=== PATIENT | male | born 1945 | race Caucasian/White ===

== ENCOUNTER 2017-01-26 21:52 | Inpatient (IN) | payer OTHER ==
[~2017-01-26] VITALS: Ht 182.9 cm; Wt 94.5 kg
[2017-01-26 22:26] LABS: HEMATOCRIT 39.5 % (38.0-50.0); MCH 31.2 PG (29.0-34.0); MCHC 33.2 G/DL (30.0-36.0); MEAN PLAT.VOLUME 9.6 uM^3 (9.0-12.4); PLATELET COUNT 370 K/uL (156-360); RBC DIS.WIDTH-CV 13.7 % (11.8-14.6); RBC DIS.WIDTH-SD 46.5 % (39-53); WHITE BLOOD COUNT 9.1 K/uL (4.1-10.2)
[2017-01-26 22:33] LABS: POINT-OF-CARE METER ID UU14100415
[2017-01-26 22:35] LABS: CHLORIDE 104 mEq/L (99-109); POTASSIUM 3.5 mEq/L (3.7-5.4); SODIUM 139 mEq/L (136-147)
[2017-01-26 22:37] LABS: GLUCOSE 137 mg/dL (70-99)
[2017-01-26 22:38] LABS: ANION GAP 14 MEQ/L (2-14)
[2017-01-26 22:39] LABS: TOTAL BILIRUBIN 0.9 mg/dL (0.0-1.0)
[2017-01-26 22:40] LABS: ALKALINE PHOSPHATASE 75 IU/L (3-129)
[2017-01-26 22:41] LABS: GFR ESTIMATE (CALCULATED) 40 mL/min/
[2017-01-26 22:42] LABS: UREA NITROGEN (BUN) 17 mg/dL (9-23)
[2017-01-26 22:47] LABS: TROP-I INTERPRETATION INDETERMINATE; TROPONIN-I 0.32 ng/mL (0.0-0.30)
[2017-01-26 22:56] LABS: LIPASE 110 U/L (1.0-51.0)
[2017-01-27] LABS: INTER. NORMALIZED RATIO 1.1; PROTHROMBIN TIME 10.9 (9.2-11.2); PTT 28.9 (25-32)
[2017-01-27 04:36] LABS: ADD MIUA? YES; BILIRUBIN NEGATIVE; BLOOD NEGATIVE; COLOR YELLOW ((YELLOW)); GLUCOSE (STRIP) NEGATIVE; KETONES 5; LEUKOCYTES NEGATIVE; NITRITE NEGATIVE; PROTEIN (STRIP) 100; SPECIFIC GRAVITY 1.015 (1.000-1.030)
[2017-01-27 04:41] LABS: BACTERIA RARE /HPF; EPITHELIAL CELLS NONE SEEN /HPF; MUCUS TRACE /LPF; RED BLOOD CELLS 0-5 /HPF (0-5); UCUL ADDED? NO; WHITE BLOOD CELLS 0-5 /HPF (0-5)
[2017-01-27 04:42] LABS: DYSMORPHIC RED BLOOD CELLS TNTC /HPF (0-5)
[2017-01-27 06:45] LABS: HEMATOCRIT 39.7 % (38.0-50.0); MCH 30.5 PG (29.0-34.0); MCHC 32.2 G/DL (30.0-36.0); MCV 94.7 FL (86-99); MEAN PLAT.VOLUME 10.3 uM^3 (9.0-12.4); PLATELET COUNT 416 K/uL (156-360); RBC DIS.WIDTH-SD 47.7 % (39-53); RED BLOOD COUNT 4.19 M/uL (4.00-5.50); WHITE BLOOD COUNT 10.7 K/uL (4.1-10.2)
[2017-01-27 06:50] LABS: TROP-I INTERPRETATION NEGATIVE; TROPONIN-I 0.27 ng/mL (0.0-0.30)
[2017-01-27 07:07] LABS: ALKALINE PHOSPHATASE 67 IU/L (3-129); ANION GAP 7 MEQ/L (2-14); CHLORIDE 104 MEQ/L (99-109); GFR ESTIMATE (CALCULATED) 49 mL/min/; GLUCOSE 109 mg/dL (70-99); POTASSIUM 3.6 MEQ/L (3.7-5.4); SAMPLE HEMOLYSIS CHECK 0; SAMPLE ICTERIC CHECK 0; SAMPLE LIPEMIA CHECK 0; SODIUM 139 MEQ/L (136-147); TOTAL BILIRUBIN 0.9 MG/DL (0.0-1.0); UREA NITROGEN (BUN) 17 mg/dL (9-23)
[2017-01-27 08:11] LABS: Estimated Average Glucose 100 mg/dL (70-123); HEMOGLOBIN A1c (GLYCOHEMOGLOB) 5.1 % HGB (Below 5.7)
[2017-01-27 10:13] LABS: BASE EXCESS 1.1 mEq/L (-3 to +3); BICARBONATE 25.1 mEq/L (22-26); CARBOXY HGB 2.1 % (0-5); COMMENTS - BLOOD GASES A+C+; DEVICE NC; METHEMOGLOBIN 1.1 % (0-1.5); O2 FLOW 3 L/MIN; PCO2 37 mm Hg (35-45); PO2 97 mm Hg (80-100); SITE RR; TOTAL RESP RATE 20 resp/min; pH 7.44 (7.35-7.45)
[2017-01-27 11:41] LABS: SERUM ETHYL ALCOHOL < 10 mg/dL
[2017-01-27 11:43] LABS: TROP-I INTERPRETATION NEGATIVE; TROPONIN-I 0.22 ng/mL (0.0-0.30)
[2017-01-27 11:44] LABS: SALICYLATE < 5.0 MG/DL (15-30)
[2017-01-27 12:25] VITALS: BP 193/93
[2017-01-27 13:25] LABS: AMPHETAMINES QUANT VALUE 0 NG/ML; BARBITUATES QUANT VALUE 0 NG/ML; BENZODIAZEPINES QUANT VALUE 0 NG/ML; BENZODIAZEPINES, URINE SCREEN Negative (200 ng/mL); MARIJUANA QUANT VALUE 0 NG/ML; OPIATES QUANTITATIVE VALUE 0 NG/ML; PHENCYCLIDINE QUANT VALUE 0 NG/ML
[2017-01-27 14:29] LABS: TREPONEMA ANTIBODY NEGATIVE (NEGATIVE)
[2017-01-27 16:13] VITALS: BP 178/84
[2017-01-27 19:19] VITALS: BP 145/64
[2017-01-27 23:38] VITALS: BP 194/85
[2017-01-28 03:28] VITALS: BP 148/73
[2017-01-28 07:47] VITALS: BP 163/77
[2017-01-28 09:01] LABS: BASOPHIL COUNT 0.1 K/uL (0-0.1); EOSINOPHIL (%) 1.4 % (0-5); EOSINOPHIL COUNT 0.1 K/uL (0-0.3); HEMATOCRIT 35.2 % (38.0-50.0); IMMATURE GRANULOCYTE (%) 0.4 % (0.0-0.7); INSTRUMENT ABS NEUTROPHIL CT 4.9 K/uL; LYMPHOCYTE COUNT 1.6 K/uL (1.0-2.8); MCH 30.5 PG (29.0-34.0); MCHC 32.1 G/DL (30.0-36.0); MCV 94.9 FL (86-99); MEAN PLAT.VOLUME 9.9 uM^3 (9.0-12.4); MONOCYTE (%) 6.1 % (3-12); MONOCYTE COUNT 0.4 K/uL (0-0.8); NEUTROPHIL (%) 68.7 % (45-76); NEUTROPHIL COUNT 4.9 K/uL (1.8-6.4); PLATELET COUNT 348 K/uL (156-360); RBC DIS.WIDTH-SD 48.3 % (39-53); RED BLOOD COUNT 3.71 M/uL (4.00-5.50)
[2017-01-28 09:05] LABS: WHITE BLOOD COUNT 7.2 K/uL (4.1-10.2)
[2017-01-28 09:08] LABS: ANION GAP 9 MEQ/L (2-14); CHLORIDE 106 MEQ/L (99-109); GFR ESTIMATE (CALCULATED) 53 mL/min/; POTASSIUM 3.7 MEQ/L (3.7-5.4); SAMPLE HEMOLYSIS CHECK 0; SAMPLE ICTERIC CHECK 0; SAMPLE LIPEMIA CHECK 0; SODIUM 141 MEQ/L (136-147); UREA NITROGEN (BUN) 16 mg/dL (9-23)
[2017-01-28 09:09] LABS: GLUCOSE 74 mg/dL (70-99)
[2017-01-28 11:28] VITALS: BP 150/70
[2017-01-28 16:00] VITALS: BP 135/88
[2017-01-28 19:41] VITALS: BP 133/73
[2017-01-29] VITALS: BP 133/66
[2017-01-29 04:16] VITALS: BP 136/58
[2017-01-29 08:12] VITALS: BP 130/59
[2017-01-29 08:58] LABS: ANION GAP 6 MEQ/L (2-14); CHLORIDE 108 MEQ/L (99-109); GFR ESTIMATE (CALCULATED) 49 mL/min/; POTASSIUM 3.7 MEQ/L (3.7-5.4); SAMPLE HEMOLYSIS CHECK 0; SAMPLE ICTERIC CHECK 0; SAMPLE LIPEMIA CHECK 0; SODIUM 141 MEQ/L (136-147); UREA NITROGEN (BUN) 16 mg/dL (9-23)
[2017-01-29 08:59] LABS: GLUCOSE 93 mg/dL (70-99)
[2017-01-29 11:16] VITALS: BP 108/51
[2017-01-29 13:04] LABS: EOSINOPHIL (%) 2.6 % (0-5); EOSINOPHIL COUNT 0.1 K/uL (0-0.3); IMMATURE GRANULOCYTE (%) 0.4 % (0.0-0.7); INSTRUMENT ABS NEUTROPHIL CT 3.4 K/uL; LYMPHOCYTE COUNT 1.4 K/uL (1.0-2.8); MCH 31.2 PG (29.0-34.0); MCHC 32.4 G/DL (30.0-36.0); MCV 96.3 FL (86-99); MEAN PLAT.VOLUME 10.1 uM^3 (9.0-12.4); MONOCYTE (%) 8.2 % (3-12); MONOCYTE COUNT 0.4 K/uL (0-0.8); NEUTROPHIL (%) 62.4 % (45-76); NEUTROPHIL COUNT 3.4 K/uL (1.8-6.4); PLATELET COUNT 295 K/uL (156-360); RBC DIS.WIDTH-CV 14.1 % (11.8-14.6); RBC DIS.WIDTH-SD 48.9 % (39-53); RED BLOOD COUNT 3.01 M/uL (4.00-5.50); WHITE BLOOD COUNT 5.4 K/uL (4.1-10.2)
[2017-01-29 20:00] VITALS: BP 128/69
[2017-01-30] VITALS: BP 143/63
[2017-01-30 04:00] VITALS: BP 151/75
[2017-01-30 07:52] VITALS: BP 127/59
[2017-01-30 11:03] VITALS: BP 136/71
[2017-01-30 15:28] VITALS: BP 126/59
[2017-01-30 20:00] VITALS: BP 122/59
[2017-01-31] VITALS: BP 152/75
[2017-01-31 03:21] VITALS: BP 147/75
[2017-01-31 08:36] VITALS: BP 158/72
[2017-01-31 12:39] VITALS: BP 143/77
[2017-01-31 16:24] VITALS: BP 147/68
[2017-01-31 20:00] VITALS: BP 145/72
[2017-02-01] VITALS: BP 140/65
[2017-02-01 04:00] VITALS: BP 134/65
[2017-02-01 07:36] LABS: HEMATOCRIT 30.5 % (38.0-50.0); MCH 30.9 PG (29.0-34.0); MCHC 31.8 G/DL (30.0-36.0); MCV 97.1 FL (86-99); MEAN PLAT.VOLUME 10.3 uM^3 (9.0-12.4); PLATELET COUNT 295 K/uL (156-360); RBC DIS.WIDTH-CV 14.3 % (11.8-14.6); RBC DIS.WIDTH-SD 49.3 % (39-53); RED BLOOD COUNT 3.14 M/uL (4.00-5.50); WHITE BLOOD COUNT 5.5 K/uL (4.1-10.2)
[2017-02-01 09:12] VITALS: BP 164/79
[2017-02-01 13:02] VITALS: BP 153/80
[2017-02-01 16:40] VITALS: BP 153/93
[2017-02-02 00:26] VITALS: BP 179/78
[2017-02-02 05:33] VITALS: BP 134/63
[2017-02-02 07:54] VITALS: BP 172/74
[2017-02-02] MEDS ORDERED: LISINOPRIL40 MG PO (12:05)
[2017-02-02] MEDS ORDERED: FOLIC ACID1 MG PO (12:05)
[2017-02-02] MEDS ORDERED: MIRTAZAPINE15 MG PO (12:05)
[2017-02-02] MEDS ORDERED: METOPROLOL SUCC50 MG PO (12:05)
[2017-02-02] MEDS ORDERED: IMDUR60 MG PO (12:05)
[2017-02-02] MEDS ORDERED: ASPIR-LOW81 MG PO (12:05)
[2017-02-02] MEDS ORDERED: DONEPEZIL HCL5 MG PO (12:05)
[2017-02-02] MEDS ORDERED: SPIRONOLACTONE25 MG PO (12:05)
[2017-02-02 14:00] VITALS: BP 151/90
== END 2017-02-02 14:20 | DRG 78 ==
LOC: EME 21:52 → EDBD 21:52 → 5SOUTH 01-27 02:44 → 4EAST 01-27 02:44 → EDOF 01-27 02:44 → 4EAST 01-27 12:35 → 5SOUTH 01-28 23:22
PROVIDERS: Emergency Medicine; Internal Medicine
DX: I67.4 Hypertensive encephalopathy (principal); I24.8 Other forms of acute ischemic heart disease; I16.0 Hypertensive urgency; N17.9 Acute kidney failure, unspecified; I13.0 Hypertensive heart and chronic kidney disease with heart failure and stage 1 through stage 4 chronic kidney disease, or unspecified chronic kidney disease; I50.22 Chronic systolic (congestive) heart failure; N18.9 Chronic kidney disease, unspecified; I42.0 Dilated cardiomyopathy; E87.6 Hypokalemia; I65.23 Occlusion and stenosis of bilateral carotid arteries; G30.9 Alzheimer's disease, unspecified; F02.81 Dementia in other diseases classified elsewhere, unspecified severity, with behavioral disturbance; E53.8 Deficiency of other specified B group vitamins; R73.9 Hyperglycemia, unspecified; G47.00 Insomnia, unspecified; Z87.891 Personal history of nicotine dependence
CPT/HCPCS: 36600; 70450; 70551; 71010; 71020; 80048; 80053; 80306 90; 81003; 82140; 82607; 82746; 82803; 82948; 83036; 83690; 83880; 84443; 84484; 85025; 85027; 85610; 85730; 86780; 93005; 93306; 93880; 94640; 94799; 97530 GO; 99281; 99285; G0480; J0360; J1644; J3420; J7030; S0028